=== PATIENT | female | born 1965 | race Caucasian/White ===

== ENCOUNTER 2021-05-01 20:51 | Inpatient (IN) | payer OTHER, MEDICAID ==
[~2021-05-01] VITALS: Ht 170.2 cm; Wt 99.8 kg
[2021-05-01 20:56] VITALS: BP 133/65
[2021-05-02] MEDS ORDERED: FLEXERIL PO (00:06)
[2021-05-02] MEDS ORDERED: HYDROCODON-ACE1 EAC7 PO (00:06)
--- NOTE | 2021-05-02 00:25 | NUR ---
ATTEMPTED TO CALL REPORT TO [facility] ON FINDINGS AND DR'S RECOMMENDATIONS POST CARE. [facility] STATED THAT THEY WERE REFUSING TO ALLOW THE PATIENT TO RETURN AT THIS TIME DUE TO THE NATURE OF PT'S FINDINGS ON CT. RN SPOKE WITH PT'S PRIMARY CARE PROVIDER INFRASTRUCTURE DEVELOPER, PCP STATED THAT SHE FELT DISCHARGE AND RETURN TO THE FACILITY WAS APPROPRIATE, BUT IT WAS THE RECIEVING FACILITY'S ULTIMATE CALL TO WHETHER OR NOT PT COULD RETURN. CONTENTS OF CONVERSATION RELAYED TO ER PROVIDER, AND CHARGE NURSE. WILL CONTINUE TO MONITOR.
[2021-05-02 05:00] VITALS: BP 144/58
[2021-05-02 08:51] VITALS: BP 164/62
--- NOTE | 2021-05-02 09:42 | NUR ---
Patient admitted for Compression fx. Patient fell x4 days ago and continues to experience back pain. Per nursing, IR is recommending outpatient follow up. Patient currently resides at [facility] ([facility] Per Catarina (Admit for [facility]), patient uses a w/c but can transfer from bed to chair. Patient is currently out of SNF days. Dr. Cole reviewing case to determine if patient can dc safely back to LT. CM to let Catarina know dc plans. CM to continue to follow for safe dc planning. [facility] /F: [phone]
[2021-05-02 12:51] VITALS: BP 146/51
--- NOTE | 2021-05-02 15:56 | NUR ---
PT BACK FROM MRI AT 1550
--- NOTE | 2021-05-02 16:03 | NUR ---
IR NOTIFIED OF MRI AND WILL NOTIFY DR OF MRI
[2021-05-02 16:06] LABS: HEMOGLOBIN 10.7 gm/dL (12.0-15.0); MCH 31.1 pg (26.0-34.0); MCHC 33.5 g/dL (28.0-37.0); MCV 92.8 fL (80.0-100.0); RBC 3.44 mil/uL (4.20-5.00); RDW-CV 15.8 % (10.5-14.5); WBC 13.9 thou/uL (4.0-11.0)
[2021-05-02 16:15] LABS: CREATININE 3.5 mg/dL (0.6-1.3); POTASSIUM 3.4 mmol/L (3.5-5.1)
[2021-05-02 16:36] VITALS: BP 116/54
[2021-05-02 17:23] LABS: APTT 27.9 Seconds (25.0-31.3); PROTIME 10.3 Seconds (9.20-11.50)
[2021-05-02 18:54] VITALS: BP 116/54
[2021-05-02 20:00] VITALS: BP 119/45
[2021-05-03 04:55] LABS: HEMATOCRIT 30.9 % (37.0-47.0); HEMOGLOBIN 10.5 gm/dL (12.0-15.0); MCH 31.4 pg (26.0-34.0); MCHC 33.8 g/dL (28.0-37.0); MCV 92.6 fL (80.0-100.0); MPV 7.4 fl. (7.2-11.1); RBC 3.34 mil/uL (4.20-5.00); RDW-CV 15.5 % (10.5-14.5); WBC 16.3 thou/uL (4.0-11.0)
[2021-05-03 05:25] LABS: ALBUMIN 2.7 g/dL (3.4-5.0); CALCIUM 8.7 mg/dL (8.5-10.1); CREATININE 3.7 mg/dL (0.6-1.3); MAGNESIUM 1.9 mg/dL (1.8-2.4); POTASSIUM 3.3 mmol/L (3.5-5.1); TOTAL BILIRUBIN 0.7 mg/dL (<0.1-1.0); TOTAL PROTEIN 7.4 g/dL (6.4-8.2)
--- NOTE | 2021-05-03 05:57 | NUR ---
PATIENT SLEPT PART OF THE NIGHT. PATIENT WAS GIVEN PAIN MEDICINE FOR BACK PAIN TWICE WITH SOME RELIEF. PATIENT HAS BEEN NPO FOR PROCEDURE TODAY. WILL CONTINUE TO MONITOR.
[2021-05-03 08:25] VITALS: BP 135/64
--- NOTE | 2021-05-03 15:05 | NUR ---
Pts wbc up. Plan vertebraplasty tomorrow. CM rescheduled Pt's eye appt that was scheduled for yesterday at [facility], new appt is 9/10 a@ 130pm. CM updated admissions at [facility] and put appt in Pt's dc summary
[2021-05-03 15:06] VITALS: BP 135/64
[2021-05-03 16:55] VITALS: BP 126/66
--- NOTE | 2021-05-03 18:31 | NUR ---
PATIENT HAS REMAINED A&OX4, COOPERATIVE WITH CARES THIS SHIFT. PATIENT STATES THAT SHE "CANNOT SEE" (CHRONIC). PATIENT'S SURGERY WAS PUSHED BACK TO 05/04 AND SHE IS CURRENTLY ON A RENAL DIET HOWEVER WILL BE NPO AT MIDNIGHT. PATIENT WAS DIALYZED TODAY AND TOLERATED WELL. URINE SPECIMEN COLLECTED AND SENT TO LAB. PATIENT CONTINUES TO HAVE NO IV ACCESS (DR. HUDSON AWARE) HOWEVER WILL NEED ONE PRIOR TO SURGERY. MEDICATIONS ADMINISTERED ORDERED. CALL LIGHT AND FREQUENTLY USED ITEMS WITHIN REACH.
[2021-05-03 20:30] VITALS: BP 119/52
[2021-05-04 02:25] VITALS: BP 128/53
[2021-05-04 08:00] VITALS: BP 153/62
[2021-05-04 08:03] VITALS: BP 128/53
[2021-05-04 08:14] LABS: HEMATOCRIT 33.3 % (37.0-47.0); HEMOGLOBIN 11.2 gm/dL (12.0-15.0); MCH 31.6 pg (26.0-34.0); MCHC 33.6 g/dL (28.0-37.0); MCV 94.1 fL (80.0-100.0); MPV 7.6 fl. (7.2-11.1); RBC 3.54 mil/uL (4.20-5.00); RDW-CV 15.9 % (10.5-14.5); WBC 13.6 thou/uL (4.0-11.0)
[2021-05-04 08:21] LABS: ALBUMIN 3.1 g/dL (3.4-5.0); CALCIUM 8.7 mg/dL (8.5-10.1); CREATININE 3.4 mg/dL (0.6-1.3); POTASSIUM 4.1 mmol/L (3.5-5.1); TOTAL BILIRUBIN 0.6 mg/dL (<0.1-1.0); TOTAL PROTEIN 7.6 g/dL (6.4-8.2)
--- NOTE | 2021-05-04 10:28 | NUR ---
0909: PATIENT OFF FLOOR. PATIENT TAKEN TO IR VIA BED ACCOMPANIED BY IR STAFF.
--- NOTE | 2021-05-04 11:23 | NUR ---
1042: PATIENT BACK TO FLOOR AND ROOM VIA BED ACCOMPANIED WITH IR NURSES
[2021-05-04 14:47] VITALS: BP 128/53
[2021-05-04 15:14] VITALS: BP 128/53
--- NOTE | 2021-05-04 15:17 | NUR ---
HAYLEY DISCHARGED AT THIS TIME VIA WHEELCHAIR ACCOMPANIED BY [facility] TRANSPORTER. DISCHARGE INSTRUCTIONS AND COPIED CHART SENT WITH PATIENT. JOELLE BERNAL. CELESTE AND BANDAID TO SITE. ALL QUESTIONS AND CONCERNS ADDRESSED.
--- NOTE | 2021-05-04 16:56 | NUR ---
Pt discharged back to [facility] today at 3pm
--- NOTE | 2021-05-05 11:17 | CON ---
[address] [address] CONSULTATION Name: MINDY FROST Room: [address] IN M.R.#: [id number] Admission: 05/02/21 Attend Phys: Kaylyn Cole MD Discharge: 05/04/21 Date of : 69 Report #: [id number] THIS REPORT FOR: cc: Dirk Ramirez Jr., NP, James E. Jr. NP Vasudeva, Amita MD ~ DATE OF CONSULTATION: 05/03/2021 NEPHROLOGY CONSULTATION CONSULTING PHYSICIAN: Dr. Cole. REASON FOR NEPHROLOGY CONSULTATION: ESRD, for hemodialysis need. REASON FOR ADMISSION: Intractable back pain. HISTORY OF PRESENT ILLNESS: The patient is a 56-year-old female who has ESRD. She was on hemodialysis Saturday, Saturday and Saturday at [facility] dialysis facility under the care of Dr. Moody. She had a full dialysis on Saturday. She comes in with back pain, found to have acute versus subacute fractures in her vertebrae, L4 and L3. She is being considered for vertebroplasty. I saw her on dialysis today. She was complaining of back pain to me. ALLERGIES: No known drug allergies. REVIEW OF SYSTEMS: As mentioned in history of present illness and otherwise 10-point review of systems are negative. She has no edema today. PAST MEDICAL AND SURGICAL HISTORY: Includes chronic respiratory failure. She has ESRD on hemodialysis every Saturday, Saturday and Saturday, she has generalized weakness, diabetes mellitus, hypothyroidism, hyperlipidemia, chronic right heel ulcer, PVD, major depressive disorder, sleep apnea, hypertension, heart failure, GERD. FAMILY HISTORY: Her mom was on dialysis. SOCIAL HISTORY: She lives in a rehab facility. She does not use any recreational drugs. No smoking, no alcohol. HOME MEDICATIONS: Reviewed according to the patient's chart, she is on Flexeril, hydrocodone and rest of the medication list was reviewed, but I am not sure this is an accurate medication list. PHYSICAL EXAMINATION: [place] [address] CONSULTATION Name: MINDY FROST Room: [address] IN [facility].#: [id number] Admission: 05/02/21 Attend Phys: Kaylyn Cole MD Discharge: 05/04/21 Date of : 69 Report #: [id number] VITAL SIGNS: Blood pressure is 135/64, respiratory rate is 16, pulse rate is 84, temperature 36.8, and pulse ox is 100% on 2 liters oxygen via nasal cannula. GENERAL: The patient was seen on dialysis. HEAD AND EYES: Atraumatic, normocephalic. Conjunctivae are normal. She is awake, alert, oriented x 3. Ears, nose, throat, normal. Mucous members are moist. NECK: No JVD. CHEST: Bilateral decreased breath sounds anteriorly. No crackles or wheezing. CARDIAC: S1, S2 normal. No murmurs. ABDOMEN: Soft, obese, nondistended, nontender. LOWER EXTREMITIES: No lower extremity edema. DIALYSIS ACCESS: She has a right arm AV fistula with good bruit and good thrill. NEUROLOGIC: Grossly intact. PSYCHIATRIC: Her mood and affect seem to be normal. LABORATORY DATA: Sodium is 139, potassium is 3.3. White count was 16,000 and hemoglobin was 10.5 and other labs are reviewed.: Lumbar spine MRI and CT were reviewed. ASSESSMENT: 1. End stage renal disease, on hemodialysis every Saturday, Saturday and Saturday. 2. Intractable back pain, acute versus subacute L3-L4 fractures. 3. Diabetes type 2. We will defer to internal medicine for management. 4. Hypertension. 5. Hyperlipidemia. 6. Peripheral vascular disease. 7. History of osteomyelitis in right foot. 8. Sleep apnea. 9. Hypertension. 10. Major depressive disorder. 11. Gastroesophageal reflux disease. PLAN: Hypokalemia. We will adjust dialysis bath for dialysis today. The patient was seen on dialysis. She is actually below her dry weight. Her dry weight is 99.7 kilograms, we will try to pull 1-1/2 liters off of her if she tolerates. Management for multiple fractures as per primary team. Hemoglobin currently is at goal 10.5. [place] [address] CONSULTATION Name: MINDY FROST Room: [address] IN .R.#: [id number] Admission: 05/02/21 Attend Phys: Kaylyn Cole MD Discharge: 05/04/21 Date of : 69 Report #: [id number] Thank you for the consultation. We will continue to follow with you for dialysis needs. <ELECTRONICALLY SIGNED> By: Shana Byrne MD 05/05/21 1117 0930 [id number] Byrne MD /nt
== END 2021-05-04 15:15 | DRG 515 ==
LOC: M.ERS 20:51 → M.TBA-ER 05-02 01:39 → M.2W 05-02 15:39 → M.TBA-ER 05-02 15:39 → M.2W 05-02 19:36
PROVIDERS: Internal Medicine Cardiovascular Disease; Radiology Diagnostic Radiology; ADMIT Internal Medicine; ATTEND Internal Medicine
PROC: 5A1D70Z Performance of Urinary Filtration, Intermittent, Less than 6 Hours Per Day (ICD-10-PCS; principal; 2021-05-03)
PROC: 0QS03ZZ Reposition Lumbar Vertebra, Percutaneous Approach (ICD-10-PCS; 2021-05-04)
PROC: 0QU03JZ Supplement Lumbar Vertebra with Synthetic Substitute, Percutaneous Approach (ICD-10-PCS; 2021-05-04)
DX: S32.030A Wedge compression fracture of third lumbar vertebra, initial encounter for closed fracture (principal); N18.6 End stage renal disease; I12.0 Hypertensive chronic kidney disease with stage 5 chronic kidney disease or end stage renal disease; E44.1 Mild protein-calorie malnutrition; S32.040A Wedge compression fracture of fourth lumbar vertebra, initial encounter for closed fracture; E03.9 Hypothyroidism, unspecified; E78.5 Hyperlipidemia, unspecified; E11.51 Type 2 diabetes mellitus with diabetic peripheral angiopathy without gangrene; K21.9 Gastro-esophageal reflux disease without esophagitis; I50.9 Heart failure, unspecified; F32.9 Major depressive disorder, single episode, unspecified; E11.22 Type 2 diabetes mellitus with diabetic chronic kidney disease; E87.6 Hypokalemia; Z20.822 Contact with and (suspected) exposure to COVID-19; Z99.2 Dependence on renal dialysis